=== PATIENT | female | born 1960 | race Caucasian/White ===

== ENCOUNTER 2019-03-04 21:06 | Emergency (ER) | payer BC ==
[~2019-03-04] VITALS: Ht 149.9 cm; Wt 52.2 kg
[2019-03-04 21:30] VITALS: BP 127/57
--- NOTE | 2019-03-04 21:32 | NUR ---
TO LOBBY A/W BED AMBULATORY
--- NOTE | 2019-03-05 01:07 | NUR ---
AMBULATED TO ER BED 4
[2019-03-05] MEDS ORDERED: MECLIZINE 25 MG TAB PO ONE (01:30)
[2019-03-05 01:56] LABS: BASOPHILS % (AUTO) 0.5 % (0.0-2.0); EOSINOPHILS # (AUTO) 0.1 K/uL (0-0.4); EOSINOPHILS % (AUTO) 3.4 % (0.0-4.0); HEMATOCRIT 39.6 % (36-48); HEMOGLOBIN 13.1 g/dL (12.0-16.0); LYMPHOCYTES # (AUTO) 1.7 K/uL (2.5-16.5); LYMPHOCYTES % (AUTO) 41.9 % (20.5-51.1); MEAN CORPUSCULAR HEMOGLOBIN 28 pg (27-31); MEAN CORPUSCULAR HGB CONC 33 g/dL (33-37); MEAN CORPUSCULAR VOLUME 84.6 fL (80-94); MONOCYTES # (AUTO) 0.5 K/uL (0.8-1.0); MONOCYTES % (AUTO) 12.3 % (1.7-9.3); NEUTROPHILS # (AUTO) 1.7 K/uL (1.8-7.7); NEUTROPHILS % (AUTO) 41.9 % (42.2-75.2); PLATELET COUNT (AUTO) 188 K/uL (140-450); RED BLOOD CELL COUNT(AUTO) 4.68 MIL/uL (4.20-5.40); RED CELL DISTRIBUTION WIDTH 14.1 % (11.6-13.7); WHITE BLOOD COUNT (AUTO) 4.1 K/uL (4.8-10.8)
[2019-03-05 01:57] LABS: APPEARANCE,URINE CLEAR (CLEAR); BILIRUBIN,URINE NEGATIVE (NEGATIVE); BLOOD, URINE 2+ (NEGATIVE); COLOR,URINE YELLOW (YELLOW); LEUKOCYTE ESTERASE ,URINE 1+ (NEGATIVE); NITRITE, URINE NEGATIVE (NEGATIVE); UGLUCOSE NEGATIVE (NEGATIVE)
[2019-03-05 02:06] LABS: RBC,URINE 11-20 (MOD) /HPF (0-5)
[2019-03-05 02:08] LABS: ANION GAP 10.3 (8-16); CARBON DIOXIDE 31.9 mmol/L (21-32); CREATININE 1.2 mg/dL (0.6-1.3); POTASSIUM 4.2 mmol/L (3.5-5.1)
[2019-03-05 02:14] LABS: ALBUMIN 4.1 g/dL (3.4-5.0); TOTAL BILIRUBIN 0.3 mg/dL (0.0-1.0)
--- NOTE | 2019-03-05 02:46 | NUR ---
58 Y/O FEMALE C/O GEN WEAKNESS, H/A, DIZZINESS, 9/10 GENERALIZED PAIN TO THE ARMS, BACK, SHOULDER AND CHEST. STARTED TODAY SEEN IN AN URGENT CARE WITH REFERRAL LETTER. PMH: OSTEOPOROSIS, FYBROMYALGIA, ARTHRITIS NKDA
[2019-03-05] MEDS ORDERED: ACETAMINOPHEN 325 MG TAB PO ONE (03:25)
[2019-03-05 04:06] VITALS: BP 127/57
--- NOTE | 2019-03-05 04:06 | NUR ---
Patient discharged with v/s stable. Written and verbal after care instructions given and explained. Patient alert, oriented and verbalized understanding of instructions. Ambulatory with steady gait. All questions addressed prior to discharge. ID band removed. Patient advised to follow up with PMD. Rx of MECLIZINE HYDROCHLORIDE 25 MG given. Patient educated on indication of medication including possible reaction and side effects. Opportunity to ask questions provided and answered.
== END 2019-03-05 04:06 | disposition home or self-care (01) ==
LOC: MED 21:06
DX: R42 Dizziness and giddiness (principal); R53.1 Weakness; M54.5 Low back pain
CPT/HCPCS: 36415; 80053; 81001; 84484; 85025; 87086; 93005; 99284; J8597; 99283